=== PATIENT | female | born 1970 | race Native Hawaiian/Other Pacific Islander ===

== ENCOUNTER → 2019-11-06 12:48 | Outpatient (BNVA) | payer BC, SELFPAY | PROVIDERS: Family Provider Nurse Practitioner Family; PCP Family Medicine; Visit Provider Family Medicine | DX: J02.9 Acute pharyngitis, unspecified (principal); R05 Cough; J01.00 Acute maxillary sinusitis, unspecified; J20.8 Acute bronchitis due to other specified organisms; B96.89 Other specified bacterial agents as the cause of diseases classified elsewhere | CPT/HCPCS: 87071; 87400; 87880 ==

== ENCOUNTER → 2021-02-16 16:28 | Outpatient (BNVA) | payer BC, SELFPAY | PROVIDERS: Family Provider Family Medicine; PCP Family Medicine; Visit Provider Nurse Practitioner Family | DX: Z20.822 Contact with and (suspected) exposure to COVID-19 (principal) | CPT/HCPCS: 87635 ==

== ENCOUNTER 2025-03-27 09:59 | Emergency (ER) | payer BC, MEDICAID, SELFPAY ==
[2025-03-27] VITALS (8 sets, daily range): BP systolic 126–160; BP diastolic 83–107; PULSE 67–105; RESP 16–22; TEMP 36.4; O2SAT 91–99
[2025-03-27 10:53] LABS: Hematocrit 41.2 % (36-47); Hemoglobin 13.10 g/dL (11.27-16.99); Mean Corpuscular HGB Conc 31.8 g/dL (30-55); Mean Corpuscular Hemoglobin 27.1 pg (27-33); Mean Corpuscular Volume 85.3 fl (85-98); Nucleated Red Blood Cells % 0 %; Platelet Count 322 10^3/cmm (157-399); Red Blood Count 4.83 10^6/uL (3.85-5.65); White Blood Count 11.20 10^3/uL (3.29-11.43)
[2025-03-27 11:11] LABS: Alanine Aminotransferase 8 U/L (0-33); Albumin Level 4.0 g/dL (3.5-5.2); Alkaline Phosphatase 93 U/L (35-105); Anion Gap 18.2 (5-19); Aspartate Amino Transferase 10 U/L (0-32); Blood Urea Nitrogen 14 mg/dL (6-20); Calcium 10.1 mg/dL (8.5-10.5); Carbon Dioxide 20 mmol/L (22-29); Chloride 101 mmol/L (98-107); Creatinine Clr Calc Pharmacy 72.1583; Globulin 4.3 g/dL (1.3-4.6); Glucose 150 mg/dL (65-115); Lipase 26 U/L (13-60); Osmolality Calculated 283 mOsm/kg (285-295); Potassium 4.2 mmol/L (3.5-5.1); Sodium 135 mmol/L (136-145); Total Protein 8.3 g/dL (6.6-8.7)
--- NOTE | 2025-03-27 13:26 | CT_ITS ---
WS: [id number] CT ABDOMEN AND PELVIS WITH CONTRAST HISTORY: abd pain, RIGHT flank pain. TECHNIQUE: Imaging performed of the abdomen and pelvis with IV contrast. Single phase imaging of the abdomen. Coronal and sagittal reformats are submitted. All CT scans at [facility] use at least one of these dose optimization techniques: automated exposure control; mA and/or kV adjustment per patient size (includes targeted exams where dose is matched to clinical indication); or iterative reconstruction. IV CONTRAST: Omnipaque 350; 100 mL IV. Oral contrast: No DLP: 439.64 mGy.cm COMPARISON: None available. Lower thorax: Mild groundglass attenuation at the lung bases. No pneumonia. Heart is normal size. No hiatal hernia. Liver/biliary system: Normal size with no intrahepatic dilatation. Gallbladder: Normal. No gallstones or wall thickening. No pericholecystic fluid. Pancreas: Normal size pancreas and pancreatic duct. No adjacent inflammation. Spleen: Spleen is slightly enlarged at 13.7 cm in length. There is a very tiny low-attenuation lesion in the spleen. Adrenal glands: Normal. Right kidney: Normal size kidney. Small cortical cysts. Mild dilatation of the central renal pelvis and proximal ureter. The remaining ureter is also dilated secondary to a distal ureteral calcification measuring 8.5 x 3.0 mm. There are additional calcifications in the RIGHT pelvis which appear external to the urological system. Left kidney: Normal size kidney with tiny nonobstructing stones. Small cortical cyst. Aorta: Normal. Lymphadenopathy: None. Free fluid: None. GI tract: No obstruction or colitis. Appendix is not definitely visualized. Abdominal wall: Fat containing umbilical hernia. Pelvis: No free fluid or adenopathy within the pelvis. Bones: Unremarkable. CT/CT abdomen pelvis w con* [id number] IMPRESSION: 1. Mild RIGHT hydroureteronephrosis secondary to an 8.5 x 3.0 mm calcification of the distal ureter. 2. No GI tract obstruction. 3. Appendix is not definitely visualized but there are no secondary findings o f appendicitis. 4. Spleen is measuring slightly enlarged at 13.7 cm.
--- NOTE | 2025-03-27 13:27 | ED_ITS ---
HPI - Abdominal Pain 2 General: Chief Complaint: Abdominal Pain Stated Complaint: pain in the kindey Time Seen by Provider: 03/27/25 13:14 Source: patient Mode of arrival: ambulatory Limitations: no limitations History of Present Illness: 55-year-old female who states that she b een having right sided abdominal pain or flank pain that started this morning at 5 AM. States pains been severe in nature rates it a 9 out of 10 and states has also had some vomiting and diarrhea. She denies any fevers. She denies any worse improving factors. History of in the past no other surgeries Associated Symptoms: Reports diarrhea, nausea and vomiting; Denies chills and fever(s) Related Data Home Medications ?Medication ?Instructions ?Recorded ?Confirmed diphenhydramine HCl 25 mg capsule 50 mg PO DAILY PRN A llergy Symptoms 11/06/19 03/27/25 (Benadryl) lbknruw-otlqmsljxjltx-oaevjiba 250 2 tab PO Q6H PRN He adache 03/27/25 03/27/25 mg-250 mg-65 mg tablet (Excedrin Migraine) tlslxmvva-ON-JU-acetaminophen 25 1 ea PO Q8H PRN Cold Symptoms 03/27/25 03/27/25 mg-10 mg-20 mg-650mg powder packs,seq Previous Rx's ?Medication ?Instructions ?Recorded hydrocodone 5 mg-acetaminophen 325 1 tab PO Q6H PRN pa in #14 tabs 03/27/25 mg tablet ondansetron 4 mg disintegrating 4 mg PO Q6H PRN nausea and 03/27/25 tablet vomiting #14 tabs tamsulosin 0.4 mg capsule (Flomax) 0.4 mg PO DAILY #5 caps 03/27/25 Allergies Allergy/AdvReac Type Severity Reaction Status Date / Time erythromycin base (From Allergy ALGY-Anaphy Verified 02/16/21 16:18 Erythrocin) laxis Penicillins Allergy ALGY-Difficulty Verified 02/16/21 16:18 Breathing Review of Systems 2 Const: Denies: fever(s), chills, body aches or change in appetite ENMT: Denies: throat pain or dental pain Card: Denies: chest pain Resp: Denies: dyspnea GI: Reports: abdominal pain, nausea, vomiting and diarrhea Musc: Denies: neck pain or back pain Skin/Breast: Denies: rash Neuro: Denies: headache(s) PFSH ED 2 PFSH: Social History Smoking and tobacco/nicotine status: former use of tobacco/nicotine Physical Exam 2 Const: COMMON NORMALS: no acute distress, patient oriented x3 and healthy appearing HENMT: COMMON NORMALS: normocephalic and atraumatic HEAD & SCALP: n ormocephalic and atraumatic Neck/C-Spine: COMMON NORMALS: full ROM and supple Chest: COMMONS NORMALS: normal inspection of the chest Resp: COMMON NORMALS: normal respiratory effort, No retractions, No use of accessory muscles and clear to auscultation bilaterally AUSCULTATION: clear to auscultation bilaterally Cardio: COMMON NORMALS: regular rate, regular rhythm and No murmurs present (Cardio) RATE: regular rate RHYTHM: regular rhythm GI: COMMON NORMALS: Normal to inspection, nondistended, normoactive bowel sounds present, Soft to palpation and no masses PALPATION: Yes Soft to palpation and Yes Tenderness to palpation present (GI) Details: RLQ Extremity: COMMON NORMALS: normal to inspection and full ROM Neuro: COMMON NORMALS: patient oriented x3, moves all extremities and no focal motor deficits Psych: COMMON NORMALS: mental status grossly normal, Normal thought process present and cooperative THOUGHT PROCESS: Normal thought process present Skin: COMMON NORMALS: no rashes or lesions noted and no wounds GENERAL SKIN EXAM: no rashes or lesions noted Course 2 Vital Signs: Vital signs: Vital Signs Temperature 97.5 F L 03/27/25 10:09 Pulse Rate 97 03/27/25 17:53 Respiratory Rate 16 03/27/25 17:54 Blood Pressure 134/83 03/27/25 17:53 Pulse Oximetry 93 03/27/25 17:53 Oxygen Delivery Me thod Nasal Cannula 03/27/25 17:53 Oxygen Flow Rate 2 03/27/25 17:53 MDM - Abdominal Pain Medical Decision Making Patient presents here with flank pain does have a kidney stone. Patient has no signs of UTI did speak to urology at [facility] Dr. Pagan patient is to follow-up there we will prescribe pain meds along with Flomax and nausea meds she is to return if worsening she understands agrees to plan. Medical Records I reviewed the patient's medical records. Lab Data I reviewed the patient's lab results. 03/27/25 10:46 03/27/25 10:46 Labs/Radiology: Radiology Impressions Abdomen/Pelvis CT 03/27/25 13:26 IMPRESSION: 1. Mild RIGHT hydroureteronephrosis secondary to an 8.5 x 3.0 mm calcification of the distal ureter. 2. No GI tract obstruction. 3. Appendix is not definitely visualized but there are no secondary findings of appendicitis. 4. Spleen is measuring slightly enlarged at 13.7 cm. Laboratory Results WBC 11.20 10^3/uL (3.29-11.43) 03/27/25 10:46 RBC 4.83 10^6/uL (3.85-5.65) 03/27/25 10:46 Hgb 13.10 g/dL (11.27-16.99) 03/27/25 10:46 Hct 41.2 % (36-47) 03/27/25 10:46 MCV 85.3 fl (85-98) 03/27/25 10:46 MCH 27.1 pg (27-33) 03/27/25 10:46 MCHC 31.8 g/dL (30-55) 03/27/25 10:46 RDW 13.5 % (12.1-15.1) 03/27/25 10:46 Plt Count 322 10^3/cmm (157-399) 03/27/25 10:46 MPV 10.0 fL (7.4-10.4) 03/27/25 10:46 Neut % (Auto) 88.4 % 03/27/25 10:46 Lymph % (Auto) 6.2 % 03/27/25 10:46 [place] % (Auto) 3.2 % 03/27/25 10:46 Eos % (Auto) 1.1 % 03/27/25 10:46 Baso % (Auto) 0.4 % 03/27/25 10:46 Neut # (Auto) 9.90 10^3/uL (1.8-7.7) H 03/27/25 10:46 Lymph # (Auto) 0.7 10^3/uL (0.8-4.8) L 03/27/25 10:46 [place] # (Auto) 0.4 10^3/uL (0.2-0.9) 03/27/25 10:46 Eos # (Auto) 0.1 10^3/uL (0.0-0.8) 03/27/25 10:46 Baso # (Auto) 0.1 10^3/uL (0.0-0.1) 03/27/25 10:46 Nucleated RBC % (auto) 0 % 03/27/25 10:46 Nucleated RBCs # 0.0 /100WBC 03/27/25 10:46 Sodium 135 mmol/L (136-145) L 03/27/25 10:46 Potassium 4.2 mmol/L (3.5-5.1) 03/27/25 10:46 Chloride 101 mmol/L (98-107) 03/27/25 10:46 Carbon Dioxide 20 mmol/L (22-29) L 03/27/25 10:46 Anion Gap 18.2 (5-19) 03/27/25 10:46 BUN 14 mg/dL (6-20) 03/27/25 10:46 Creatinine 0.9 mg/dL (0.5-0.9) 03/27/25 10:46 GFR Calculation 65.5 mL/min (90-130) L 03/27/25 10:46 Glucose 150 mg/dL (65-115) H 03/27/25 10:46 Calculated Osmolality 283 mOsm/kg (285-295) L 03/27/25 10:46 Calcium 10.1 mg/dL (8.5-10.5) 03/27/25 10:46 Total Bilirubin 0.5 mg/dL (0.15-1.2) 03/27/25 10:46 AST 10 U/L (0-32) 03/27/25 10:46 ALT 8 U/L (0-33) 03/27/25 10:46 Alkaline Phosphatase 93 U/L (35-105) 03/27/25 10:46 Total Protein 8.3 g/dL (6.6-8.7) 03/27/25 10:46 Albumin 4.0 g/dL (3.5-5.2) 03/27/25 10:46 Globulin 4.3 g/dL (1.3-4.6) 03/27/25 10:46 Lipase 26 U/L (13-60) 03/27/25 10:46 Urine Color Yellow (Yellow) 03/27/25 14:32 Urine Appearance Cloudy (CLEAR) A 03/27/25 14:32 Urine pH 6.5 (5-7) 03/27/25 14:32 Ur Specific [place] 1.016 (1.005-1.030) 03/27/25 14:32 Urine Protein Negative (Negative) 03/27/25 14:32 Urine Glucose (UA) Negative (Normal) 03/27/25 14:32 Urine Ketones Negative (Negative) 03/27/25 14:32 Urine Blood Non-haemolysed trace (Negative) 03/27/25 14:32 Urine Nitrate Negative (Negative) 03/27/25 14:32 Urine Bilirubin Negative (Negative) 03/27/25 14:32 Urine Urobilinogen 0.2 mg/dL (Negative) 03/27/25 14:32 Ur Leukocyte Esterase Trace (Negative) A 03/27/25 14:32 Urine RBC 3-5 /hpf (0-2) 03/27/25 14:32 Urine WBC 0-5 /hpf (0-5) 03/27/25 14:32 Ur Squamous Epith Cells 0-5 /hpf (0-5) 03/27/25 14:32 Amorphous Sediment Not Reportable 03/27/25 14:32 Urine Bacteria None seen /hpf (NONE) 03/27/25 14:32 Hyaline Casts 0.81 /lpf 03/27/25 14:32 All radiology interpretation(s) finalized by discharge EKG Data EKG 1: I personally reviewed and interpreted this EKG as follows: EKG interpretation date: 03/27/25 EKG interpretation time: 13:47 Discharge Plan Discharge Patient Disposition: Home Clinical Impression: Kidney stone Condition: Stable Prescriptions: New hydrocodone-acetaminophen 5-325 mg tablet 1 tab PO Q6H PRN (Reason: pain) Qty: 14 0RF ondansetron 4 mg tablet,disintegrating 4 mg PO Q6H PRN (Reason: nausea and vomiting) Qty: 14 0RF tamsulosin [Flomax] 0.4 mg capsule 0.4 mg PO DAILY Qty: 5 0RF No Action diphenhydramine HCl [Benadryl] 25 mg capsule 50 mg PO DAILY PRN (Reason: Allergy Symptoms) qovksjf-xtroyosjkrcmk-zajwrwkx [Excedrin Migraine] 250-250-65 mg Tablet 2 tab PO Q6H PRN (Reason: Headache) Theraflu Day-Night Cold,Cough 13-01-71-650 mg Powder In Packet, Sequential 1 ea PO Q8H PRN (Reason: Cold Symptoms) Discharge Orders: Discharge ED (Routine); Ordered 03/27/25 Ordered By: Mar Farnsworth Referrals: [facility] [Outside] - 4-7 days Discharge Diet: Advance as tolerated Discharge Activity: Resume usual activity Patient Instructions: Kidney Stones (ED), Opioid Safety Print Language: Occitan Coding Level of Care Code ED [employer] for [place]
[2025-03-27] MEDS: ondansetron 2 mg/ML SDV 2 mL 4 MG IVP (13:40)
[2025-03-27] MEDS: morphine 4 mg/mL SDV 1 mL IVP ×2 (13:40→17:54)
--- NOTE | 2025-03-27 13:47 | ECG_ITS ---
[facility] Test Date: 2025-03-27 Pat Name: Don Alexis Department: Room: Gender: Female Manager Of Hospital: : 1970 Requested By: Mar Farnsworth Order Number: [id number] Upton MD: Jeff Mendes M.D. Measurements Intervals [place] Rate: 99 P: 72 CT: 148 QRS: 74 QRSD: 91 T: 50 QT: 361 QTc: 465 Interpretive Statements SINUS RHYTHM No previous ECG available for comparison Electronically Signed On 03-30-2025 08:52:10 CDT by Jeff Mendes M.D. [email or web address] [id number]
[2025-03-27] MEDS: iohexol 350 mg/mL 500 mL Btl (per mL) IV (14:23)
[2025-03-27 14:47] LABS: Glucose Urine UA Negative (Normal); Nitrate Urine Negative (Negative); Specific Gravity, Urine 1.016 (1.005-1.030)
[2025-03-27 14:49] LABS: Add Urine Microscopic? YES
--- NOTE | 2025-03-27 16:47 | PC.PHAR ---
Patient sttaes she took thera flu last night . Patient also states she has a rescue inhaler but it wasn't hers . Patient has not rx or fill date for an inhaler . Patient also states she took some cephalexin last week , it was left over from someone they had sitting around .
== END 2025-03-27 18:23 | disposition home or self-care (01) ==
PROVIDERS: Emergency Provider Emergency Medicine; PCP Family Medicine
DX: N20.0 Calculus of kidney (principal); Z79.82 Long term (current) use of aspirin; Z87.891 Personal history of nicotine dependence
CPT/HCPCS: 36415; 74177; 80053; 81001; 83690; 85025; 93005; 96374; 96375; 96376; 99285; J1885; J2270; J2405; J7030

== ENCOUNTER 2025-03-28 17:21 | Emergency (ER) | payer BC, MEDICAID, SELFPAY ==
[2025-03-28 17:29] VITALS: BP 176/95; PULSE 114; RESP 20; TEMP 36.7; O2SAT 93; BMI 24.3
--- NOTE | 2025-03-28 19:28 | W.ED.ABDPA2 ---
HPI - Abdominal Pain General: Chief Complaint: Abdominal Pain Stated Complaint: Kidney stone Pain is worse Time Seen by Provider: 03/28/25 18:39 History of Present Illness: 55-year-old female who was diagnosed with a kidney stone yesterday who presents emergency room with nausea vomiting this been intractable at home. She think she threw up her medications. She does not have fever. She started having pain yesterday and came to the ER and was diagnosed with a kidney stone. She was in her right distal ureter and was 8.5 x 3 mm. Related Data Home Medications ?Medication ?Instructions ?Recorded ?Confirmed diphenhydramine HCl 25 mg capsule 50 mg PO DAILY PRN Allergy Symptoms 11/06/19 03/27/25 (Benadryl) iqbpeip-qnxvahczokytb-qytrgowt 250 2 tab PO Q6H PRN Headache 03/27/25 03/27/25 mg-250 mg-65 mg tablet (Excedrin Migraine) kcenwtlzv-AU-KH-acetaminophen 25 1 ea PO Q8H PRN Cold Symptoms 03/27/25 03/27/25 mg-10 mg-20 mg-650mg powder packs,seq Previous Rx's ?Medication ?Instructions ?Recorded hydrocodone 5 mg-acetaminophen 325 1 tab PO Q6H PRN pain #14 tabs 03/27/25 mg tablet ondansetron 4 mg disintegrating 4 mg PO Q6H PRN nausea and 03/27/25 tablet vomiting #14 tabs tamsulosin 0.4 mg capsule (Flomax) 0.4 mg PO DAILY #5 caps 03/27/25 Allergies Allergy/AdvReac Type Severity Reaction Status Date / Time erythromycin base (From Allergy ALGY-Anaphy Verified 02/16/21 16:18 Erythrocin) laxis Penicillins Allergy ALGY-Difficulty Verified 02/16/21 16:18 Breathing Review of Systems Narrative: Constitutional symptoms: Negative except as documented in HPI. Skin symptoms: Negative except as documented in HPI. Eye symptoms: Negative except as documented in HPI. ENMT symptoms: Negative except as documented in HPI. Respiratory symptoms: Negative except as documented in HPI. Cardiovascular symptoms: Negative except as documented in HPI. Gastrointestinal symptoms: Negative except as documented in HPI. Genitourinary symptoms: Negative except as documented in HPI. Musculoskeletal symptoms: Negative except as documented in HPI. Neurologic symptoms: Negative except as documented in HPI. Psychiatric symptoms: Negative except as documented in HPI. Endocrine symptoms: Negative except as documented in HPI. [facility] ED PFSH: Social History Smoking and tobacco/nicotine status: former use of tobacco/nicotine Physical Exam Narrative: EXAM NARRATIVE: General: Alert, no acute distress. Skin: Warm, dry. Head: Normocephalic, atraumatic. Neck: Supple, trachea midline. Eye: Extraocular movements are intact. Ears, nose, mouth and throat: Dry oral mucosa Cardiovascular: Regular, mildly tachycardic, normal peripheral perfusion. Respiratory: Lungs are clear to auscultation, respirations are non-labored, breath sounds are equal, Symmetrical chest wall expansion. Gastrointestinal: Soft, severe right flank pain, Non distended Musculoskeletal: Normal ROM, no deformity. Neurological: Alert and oriented, No focal neurological deficit observed. Psychiatric: Cooperative, appropriate mood & affect. Course Vital Signs: Vital signs: Vital Signs Temperature 98.1 F 03/28/25 17:29 Pulse Rate 109 H 03/28/25 20:23 Respiratory Rate 20 H 03/28/25 17:29 Blood Pressure 170/108 03/28/25 20:23 Pulse Oximetry 87 L 03/28/25 20:23 Oxygen Delivery Me thod Room Air 03/28/25 20:23 MDM - Abdominal Pain Medical Decision Making Medical decision making: Differential diagnosis including but not limited to and based on the above HPI, review of systems and physical exam: In this patient with known kidney stone diagnosed yesterday with intractable nausea and vomiting would have concern for urinary tract infection, renal failure. Checking white count hemoglobin renal function had a urinalysis. Orders placed to evaluate differential diagnosis based on the above differential, HPI and physical exam Lab Review: Laboratory results were reviewed and interpreted by myself the emergency room physician. Mild leukocytosis with a white count of 12.6. No anemia. Renal function is 13 and 1.0. Urinalysis shows some hematuria but no signs of infection. I reviewed the patient's medical record. I reviewed patient's chart from yesterday. Full radiology read as below. Reexamination: Patient continues to have fairly intractable pain after Toradol and multiple doses of Dilaudid. This stone likely will not pass so I am consulting urology at [place] and they are excepting the patient. Blood pressure is remain fairly high and her heart rates been high to I think this is more related to pain. No altered mental status. No focal motor deficits. Consultation: I spoke with Dr. George Bean who is a urologist at [facility]. He is accepting the patient and will intervene in the operating room tonight. Consultation: I spoke with Dr. Tyron Bingham who is a hospitalist on-call at [facility]. He is excepted the patient in transfer. Assessment and plan: Ureterolithiasis Intractable vomiting Dehydration ?Normal saline bolus, multiple doses of IV Dilaudid. A single dose of IV Toradol. And of IV Zofran. -I discussed the patient with the accepting physician on-call. - Discussed findings and plan with patient. Answered any questions. - All laboratory values were reviewed and interpreted personally by myself, the ER physician - All imaging was reviewed and interpreted personally by myself, the ER physician. - Evaluation and treatment of this problem were appropriate in the emergency setting Lab Data 03/28/25 19:03/28/25 19: Labs/Radiology: Laboratory Results WBC 12.65 10^3/uL (3.29-11.43) H 03/28/25 19: RBC 4.80 10^6/uL (3.85-5.65) 03/28/25 19: Hgb 12.80 g/dL (11.27-16.99) 03/28/25 19: Hct 40.8 % (36-47) 03/28/25: MCV 85.0 fl (85-98) 03/28/25: MCH 26.7 pg (27-33) L 03/28/25 19: MCHC 31.4 g/dL (30-55) 03/28/25 19: RDW 13.5 % (12.1-15.1) 03/28/25: Plt Count 325 10^3/cmm (157-399) 03/28/25 19: MPV 10.4 fL (7.4-10.4) 03/28/25 19: Neut % (Auto) 84.2 % 03/28/25: Lymph % (Auto) 7.9 % 03/28/25: [place] % (Auto) 4.6 % 03/28/25 19: Eos % (Auto) 1.5 % 03/28/25: Baso % (Auto) 0.6 % 03/28/25: Neut # (Auto) 10.65 10^3/uL (1.8-7.7) H 03/28/25: Lymph # (Auto) 1.0 10^3/uL (0.8-4.8) 03/28/25: [place] # (Auto) 0.6 10^3/uL (0.2-0.9) 03/28/25: Eos # (Auto) 0.2 10^3/uL (0.0-0.8) 03/28/25: Baso # (Auto) 0.1 10^3/uL (0.0-0.1) 03/28/25: Nucleated RBC % (auto) 0 % 03/28/25 Nucleated RBCs # 0.0 /100WBC 03/28/25: Sodium 136 mmol/L (136-145) 03/28/25: Potassium 4.2 mmol/L (3.5-5.1) 03/28/25: Chloride 102 mmol/L (98-107) 03/28/25: Carbon Dioxide 19 mmol/L (22-29) L 03/28/25: Anion Gap 19.2 (5-19) H 03/28/25: BUN 13 mg/dL (6-20) 03/28/25: Creatinine 1.0 mg/dL (0.5-0.9) H 03/28/25 19: GFR Calculation 58.0 mL/min (90-130) L 03/28/25: Glucose 99 mg/dL (65-115) 03/28/25: Calculated Osmolality 282 mOsm/kg (285-295) L 03/28/25: Calcium 10.0 mg/dL (8.5-10.5) 03/28/25: Total Bilirubin 0.6 mg/dL (0.15-1.2) 03/28/25: AST 11 U/L (0-32) 08/21/25 19:29 ALT 7 U/L (0-33) 03/28/25 19: Alkaline Phosphatase 83 U/L (35-105) 03/28/25 19: Total Protein 8.2 g/dL (6.6-8.7) 03/28/25 19: Albumin 4.0 g/dL (3.5-5.2) 03/28/25 19: Globulin 4.2 g/dL (1.3-4.6) 03/28/25 19: Urine Color Yellow (Yellow) 03/28/25 20:09 Urine Appearance Clear (CLEAR) 03/28/25 20:09 Urine pH 6.0 (5-7) 03/28/25 20:09 Ur Specific [place] 1.015 (1.005-1.030) 03/28/25 20:09 Urine Protein Negative (Negative) 03/28/25 20:09 Urine Glucose (UA) Negative (Normal) 03/28/25 20:09 Urine Ketones Trace (Negative) 03/28/25 20:09 Urine Blood Non-haemolysed trace (Negative) 03/28/25 20:09 Urine Nitrate Negative (Negative) 03/28/25 20:09 Urine Bilirubin Negative (Negative) 03/28/25 20:09 Urine Urobilinogen 0.2 mg/dL (Negative) 03/28/25 20:09 Ur Leukocyte Esterase Negative (Negative) 03/28/25 20:09 Urine RBC 6-10 /hpf (0-2) 03/28/25 20:09 Urine WBC 0-5 /hpf (0-5) 03/28/25 20:09 Ur Squamous Epith Cells 0-5 /hpf (0-5) 03/28/25 20:09 Amorphous Sediment Not Reportable 03/28/25 20:09 Urine Bacteria None seen /hpf (NONE) 03/28/25 20:09 Hyaline Casts 1.65 /lpf 03/28/25 20:09 No radiology studies performed this visit ED provider radiology interpretation(s): CT ABDOMEN AND PELVIS WITH CONTRAST HISTORY: abd pain, RIGHT flank pain. TECHNIQUE: Imaging performed of the abdomen and pelvis with IV contrast. Single phase imaging of the abdomen. Coronal and sagittal reformats are submitted. All CT scans at [facility] use at least one of these dose optimization techniques: automated exposure control; mA and/or kV adjustment per patient size (includes targeted exams where dose is matched to clinical indication); or iterative reconstruction. IV CONTRAST: Omnipaque 350; 100 mL IV. Oral contrast: No DLP: 439.64 mGy.cm COMPARISON: None available. Lower thorax: Mild groundglass attenuation at the lung bases. No pneumonia. Heart is normal size. No hiatal hernia. Liver/biliary system: Normal size with no intrahepatic dilatation. Gallbladder: Normal. No gallstones or wall thickening. No pericholecystic fluid. Pancreas: Normal size pancreas and pancreatic duct. No adjacent inflammation. Spleen: Spleen is slightly enlarged at 13.7 cm in length. There is a very tiny low-attenuation lesion in the spleen. Adrenal glands: Normal. Right kidney: Normal size kidney. Small cortical cysts. Mild dilatation of the central renal pelvis and proximal ureter. The remaining ureter is also dilated secondary to a distal ureteral calcification measuring 8.5 x 3.0 mm. There are additional calcifications in the RIGHT pelvis which appear external to the urological system. Left kidney: Normal size kidney with tiny nonobstructing stones. Small cortical cyst. Aorta: Normal. Lymphadenopathy: None. Free fluid: None. GI tract: No obstruction or colitis. Appendix is not definitely visualized. Abdominal wall: Fat containing umbilical hernia. Pelvis: No free fluid or adenopathy within the pelvis. Bones: Unremarkable. CT/CT abdomen pelvis w con* [id number] IMPRESSION: 1. Mild RIGHT hydroureteronephrosis secondary to an 8.5 x 3.0 mm calcification of the distal ureter. 2. No GI tract obstruction. 3. Appendix is not definitely visualized but there are no secondary findings of appendicitis. 4. Spleen is measuring slightly enlarged at 13.7 cm. Discharge Plan Discharge Patient Disposition: Xfer Short-Term Hosp Clinical Impression: Kidney stone, Dehydration Condition: Stable Referrals: Ravin Ho MD [Primary Care Provider, Family Practice] Patient Instructions: Pain Management, Patient Portal & [place] Instructions Print Language: Arabic Coding Level of Care Code ED Bilingual Spanish [employer] for [place]
[2025-03-28] MEDS: HYDROmorphone 0.5 MG/0.5 ML INJ 1 MG IVP ×2 (19:37→21:31)
[2025-03-28] MEDS: ondansetron 2 mg/ML SDV 2 mL 8 MG IVP (19:38)
[2025-03-28 19:41] LABS: Hematocrit 40.8 % (36-47); Hemoglobin 12.80 g/dL (11.27-16.99); Mean Corpuscular HGB Conc 31.4 g/dL (30-55); Mean Corpuscular Hemoglobin 26.7 pg (27-33); Mean Corpuscular Volume 85.0 fl (85-98); Nucleated Red Blood Cells % 0 %; Platelet Count 325 10^3/cmm (157-399); Red Blood Count 4.80 10^6/uL (3.85-5.65); White Blood Count 12.65 10^3/uL (3.29-11.43)
[2025-03-28 19:56] LABS: Alanine Aminotransferase 7 U/L (0-33); Albumin Level 4.0 g/dL (3.5-5.2); Alkaline Phosphatase 83 U/L (35-105); Anion Gap 19.2 (5-19); Aspartate Amino Transferase 11 U/L (0-32); Blood Urea Nitrogen 13 mg/dL (6-20); Calcium 10.0 mg/dL (8.5-10.5); Carbon Dioxide 19 mmol/L (22-29); Chloride 102 mmol/L (98-107); Creatinine Clr Calc Pharmacy 62.3333; Globulin 4.2 g/dL (1.3-4.6); Glucose 99 mg/dL (65-115); Osmolality Calculated 282 mOsm/kg (285-295); Potassium 4.2 mmol/L (3.5-5.1); Slide Review Slide Review Perform; Sodium 136 mmol/L (136-145); Total Protein 8.2 g/dL (6.6-8.7)
[2025-03-28 20:23] VITALS: BP 170/108; PULSE 109; O2SAT 87
[2025-03-28 20:34] LABS: Glucose Urine UA Negative (Normal); Nitrate Urine Negative (Negative); Specific Gravity, Urine 1.015 (1.005-1.030)
== END 2025-03-28 22:17 | disposition short-term general hospital (02) ==
PROVIDERS: Emergency Provider Emergency Medicine; PCP Family Medicine
DX: N20.0 Calculus of kidney (principal); E86.0 Dehydration; Z87.891 Personal history of nicotine dependence
CPT/HCPCS: 36415; 80053; 81001; 85025; 96374; 96375; 96376; 99284; J1171; J1885; J2405; J7030